=== PATIENT | female | born 1945 | race Caucasian/White ===

== ENCOUNTER 2017-06-18 12:50 | Emergency (ER) | payer MEDICAID, OTHER ==
[~2017-06-18] VITALS: Ht 154.9 cm; Wt 84.8 kg
[~2017-06-18 12:50] MED LIST: ALBU-136; METF500T4 PO; METO50TA9; SIMV10TA6
[2017-06-18 13:03] VITALS: BP 121/78
--- NOTE | 2017-06-18 13:08 | NUR ---
Patient ambulated to bed 08.
--- NOTE | 2017-06-18 13:09 | NUR ---
PT BIB DAUGHTER FOR EVALUATION S/P FALL THIS AM AFTER FEELING DIZZY AND HITTING BACK OF HEAD. HX DM, HTN. SKIN IS PINK/WARM/DRY; AAOX4 WITH EVEN AND STEADY GAIT; LUNGS CLEAR BL; PATIENT STATES PAIN OF 0/10 AT THIS TIME; VSS; PATIENT POSITIONED FOR COMFORT; HOB ELEVATED; BEDRAILS UP X2; BED DOWN. ER MADE AWARE OF PT STATUS. Addendum: 06/18/17 at 1452 by MED1 DENIES LOC
[2017-06-18] MEDS ORDERED: GLIP5TAB4 PO (13:17)
[2017-06-18] MEDS ORDERED: ENAL20TA89 PO (13:17)
[2017-06-18] MEDS ORDERED: MONT10TA35 PO (13:17)
[2017-06-18] MEDS ORDERED: PRAV20TA2 PO (13:17)
[2017-06-18] MEDS ORDERED: VITD400 PO (13:17)
[2017-06-18] MEDS ORDERED: CALC600T7 PO (13:17)
[2017-06-18] MEDS ORDERED: METO25TE PO (13:17)
[2017-06-18] MEDS ORDERED: ASPI81CT95 PO (13:17)
--- NOTE | 2017-06-18 13:41 | NUR ---
DR GONZALEZ EVALUATING AAO IRISH SPEAKING PT WITH FLETCHER AT BEDSIDE
--- NOTE | 2017-06-18 13:41 | NUR ---
Dr. Garduno at bedside to evaluate patient.
[2017-06-18 14:04] LABS: BASOPHILS # (AUTO) 0.1 K/uL (0.00-0.22); BASOPHILS % (AUTO) 1.5 % (0.0-2.0); EOSINOPHILS # (AUTO) 0.2 K/uL (0-0.4); EOSINOPHILS % (AUTO) 2.3 % (0.0-4.0); HEMATOCRIT 43.7 % (36-48); HEMOGLOBIN 14.4 g/dL (12.0-16.0); LYMPHOCYTES % (AUTO) 23.9 % (20.5-51.1); MEAN CORPUSCULAR HEMOGLOBIN 31 pg (27-31); MEAN CORPUSCULAR HGB CONC 33 g/dL (33-37); MEAN CORPUSCULAR VOLUME 96 fL (80-94); MONOCYTES # (AUTO) 0.6 K/uL (0.8-1.0); MONOCYTES % (AUTO) 7.7 % (1.7-9.3); NEUTROPHILS # (AUTO) 5.5 K/uL (1.8-7.7); NEUTROPHILS % (AUTO) 64.6 % (42.2-75.2); PLATELET COUNT (AUTO) 220 K/uL (140-450); RED BLOOD CELL COUNT(AUTO) 4.57 MIL/uL (4.20-5.40); RED CELL DISTRIBUTION WIDTH 13.1 % (11.6-13.7); WHITE BLOOD COUNT (AUTO) 8.4 K/uL (4.8-10.8)
[2017-06-18 14:19] LABS: CARBON DIOXIDE 35.1 mmol/L (21-32); CHLORIDE 102 mmol/L (98-107); CREATININE 0.6 mg/dL (0.6-1.3); GLUCOSE 110 mg/dL (74-106); POTASSIUM 4.1 mmol/L (3.5-5.1); SODIUM SERUM 142 mmol/L (136-145); UREA NITROGEN, BLOOD 9 mg/dL (7-18)
[2017-06-18 14:23] LABS: PROTHROMBIN TIME 10.4 secs (10.8-13.4)
[2017-06-18 14:25] LABS: ALBUMIN 3.8 g/dL (3.4-5.0); ASPARTATE AMINOTRANSFERASE 18 U/L (15-37); TOTAL BILIRUBIN 0.2 mg/dL (0.0-1.0)
[2017-06-18 14:47] VITALS: BP 122/68
== END 2017-06-18 14:47 | disposition home or self-care (01) ==
LOC: MED 12:50
DX: R42 Dizziness and giddiness (principal); E11.9 Type 2 diabetes mellitus without complications; I10 Essential (primary) hypertension
CPT/HCPCS: 36415; 80053; 81002; 84484; 85025; 85610; 85730; 99284

== ENCOUNTER 2017-08-27 13:40 | Inpatient (IN) | payer OTHER ==
[~2017-08-27] VITALS: Ht 154.9 cm; Wt 78.0 kg
[~2017-08-27 13:40] MED LIST changes: +ASPI81CT95 PO; +CALC600T7 PO; +ENAL20TA89 PO; +GLIP5TAB4 PO; +METO25TE PO; -METO50TA9; +MONT10TA35 PO; +PRAV20TA2 PO; -SIMV10TA6; +VITD400 PO
[2017-08-27 13:45] VITALS: BP 156/82
[2017-08-27] MEDS ORDERED: NACL 0.9% 1,000 ML IV SCH ×2 (14:07→15:32)
[2017-08-27 14:09] VITALS: BP 88/65
--- NOTE | 2017-08-27 14:20 | NUR ---
PT TO BED 01
--- NOTE | 2017-08-27 14:35 | NUR ---
72f bib from home with daughter with c/o cough, dizziness, weak, fever, and sob hx--dm, htn rx-- . DENIES N/V/D; SKIN IS PINK/WARM/DRY; AAOX4 WITH EVEN AND STEADY GAIT; LUNGS CLEAR BL; HR EVEN AND REGULAR; PT DENIES ANY FEVER, OR CP AT THIS TIME; PATIENT STATES PAIN OF 0/10 AT THIS TIME; VSS; PATIENT POSITIONED FOR COMFORT; HOB ELEVATED; BEDRAILS UP X2; BED DOWN. ER MD MADE AWARE OF PT STATUS.
[2017-08-27 15:02] LABS: HEMATOCRIT 46.2 % (36-48); HEMOGLOBIN 15.2 g/dL (12.0-16.0); MEAN CORPUSCULAR HEMOGLOBIN 31 pg (27-31); MEAN CORPUSCULAR HGB CONC 33 g/dL (33-37); MEAN CORPUSCULAR VOLUME 94 fL (80-94); PLATELET COUNT (AUTO) 181 K/uL (140-450); RED BLOOD CELL COUNT(AUTO) 4.91 MIL/uL (4.20-5.40); RED CELL DISTRIBUTION WIDTH 13.4 % (11.6-13.7); WHITE BLOOD COUNT (AUTO) 18.6 K/uL (4.8-10.8)
[2017-08-27 15:13] LABS: LYMPHOCYTES % (MANUAL) 4 % (20-46); MONOCYTES % (MANUAL) 4 % (5-12)
[2017-08-27] MEDS ORDERED: NACL 0.9% 500 ML IV SCH (15:32)
[2017-08-27 15:33] LABS: PROTHROMBIN TIME 11.5 secs (10.8-13.4)
[2017-08-27 15:38] LABS: ALBUMIN 3.8 g/dL (3.4-5.0); ANION GAP 11.9 (8-16); ASPARTATE AMINOTRANSFERASE 20 U/L (15-37); CARBON DIOXIDE 31.4 mmol/L (21-32); CHLORIDE 97 mmol/L (98-107); CREATININE 1.5 mg/dL (0.6-1.3); GLUCOSE 214 mg/dL (74-106); POTASSIUM 4.3 mmol/L (3.5-5.1); SODIUM SERUM 136 mmol/L (136-145); TOTAL BILIRUBIN 0.4 mg/dL (0.0-1.0); UREA NITROGEN, BLOOD 18 mg/dL (7-18)
[2017-08-27] MEDS ORDERED: OSELTAMIVIR PHOSPHATE 75 MG CAP PO ONE (16:05)
[2017-08-27] MEDS ORDERED: LEVOFLOXACIN 750 MG/D5W PREMIX 150 ML IV ONE (16:05)
[2017-08-27] MEDS ORDERED: ONDANSETRON 4 MG/2 ML VIAL IVP PRN (16:50)
[2017-08-27] MEDS ORDERED: LORazepam 2 MG/ML VIAL IVP PRN (16:50)
[2017-08-27] MEDS ORDERED: ACETAMINOPHEN 325 MG TAB PO PRN (16:50)
[2017-08-27] MEDS ORDERED: ALBUTEROL 0.083% 2.5 MG/3 ML NEBU IH PRN (16:50)
[2017-08-27] MEDS ORDERED: MORPHINE SULFATE 2 MG/ML SYR IVP PRN (16:50)
--- NOTE | 2017-08-27 19:25 | NUR ---
Pt found resting comfortably at this time. Family at bedside. Comfort needs met. Pt is pending admission.
--- NOTE | 2017-08-27 19:28 | NUR ---
REPORT GIVEN TO ALBER HEAD
[2017-08-27] MEDS ORDERED: METF500T PO (19:46)
[2017-08-27] MEDS ORDERED: PRED20TA5 PO (19:46)
--- NOTE | 2017-08-27 19:49 | NUR ---
Pt transferred to Tele 120-B via gurney via cardiac monitoring.
--- NOTE | 2017-08-27 19:55 | NUR ---
RECEIVED PATIENT FROM ER. PATIENT A&OX4. PATIENT DENIES PAIN. IV SITE PATENT AND INTACT. PATIENT ON 2L O2 NC. PATIENT DENIES SOB. PATIENT ORIENTED TO ROOM. FAMILY AT BEDSIDE. NO SIGNS OR SYMPTOMS OF ACUTE DISTRESS NOTED. CALL LIGHT WITHIN REACH. SAFETY MEASURES ENSURED. WILL CONTINUE TO MONITOR.
[2017-08-27 20:00] VITALS: BP 91/47
[2017-08-27] MEDS: IPRATROPIUM 0.02% 0.5 MG/2.5 ML NEBU IH SCH (20:18)
--- NOTE | 2017-08-27 20:30 | NUR ---
PM MEDS GIVEN WITH EDUCATION. PATIENT VERBALIZED UNDERSTANDING. PATIENT TOLERATED WELL. NO SIGNS OR SYMPTOMS OF ACUTE DISTRESS NOTED. CALL LIGHT WITHIN REACH. WILL CONTINUE TO MONITOR.
[2017-08-27] MEDS: NACL 0.9% 1,000 ML IV SCH (20:37)
[2017-08-27] MEDS: OSELTAMIVIR PHOSPHATE 75 MG CAP PO SCH (20:37)
[2017-08-27] MEDS ORDERED: INSULIN LISPRO SLIDING SCALE 100 UNITS/ML VIAL SUBQ PRN (21:40)
[2017-08-27] MEDS ORDERED: DEXTROSE 50% 50 ML SYR IVP PRN (21:40)
[2017-08-27 23:51] LABS: APPEARANCE,URINE CLEAR (CLEAR); BILIRUBIN,URINE NEGATIVE (NEGATIVE); BLOOD, URINE NEGATIVE (NEGATIVE); COLOR,URINE YELLOW (YELLOW); LEUKOCYTE ESTERASE ,URINE NEGATIVE (NEGATIVE); NITRITE, URINE NEGATIVE (NEGATIVE); PH,URINE 5.5 (5.0-9.0); UGLUCOSE NEGATIVE (NEGATIVE)
[2017-08-28] VITALS: BP 107/63
--- NOTE | 2017-08-28 02:18 | NUR ---
PATIENT UP TO USE THE BATHROOM. PATIENT TOLERATED WELL. SAFETY MEASURES ENSURED. CALL LIGHT WITHIN REACH. WILL CONTINUE TO MONITOR.
[2017-08-28] MEDS: NACL 0.9% 1,000 ML IV SCH ×3 (02:49→22:49)
[2017-08-28 04:00] VITALS: BP 119/75
--- NOTE | 2017-08-28 07:25 | NUR ---
ENDORSED PLAN OF CARE TO AM RN. PATIENT IN STABLE CONDITION.
[2017-08-28] MEDS ORDERED: BLOOD GLUCOSE MONITORING 1 DEV DEV FS SCH (07:30)
[2017-08-28 07:37] LABS: ALBUMIN 2.7 g/dL (3.4-5.0); ANION GAP 9.9 (8-16); ASPARTATE AMINOTRANSFERASE 22 U/L (15-37); CHLORIDE 104 mmol/L (98-107); CREATININE 0.7 mg/dL (0.6-1.3); GLUCOSE 117 mg/dL (74-106); MAGNESIUM 1.6 mg/dL (1.8-2.4); PHOSPHORUS 2.8 mg/dL (2.5-4.9); POTASSIUM 3.9 mmol/L (3.5-5.1); SODIUM SERUM 141 mmol/L (136-145); TOTAL BILIRUBIN 0.3 mg/dL (0.0-1.0); UREA NITROGEN, BLOOD 11 mg/dL (7-18)
[2017-08-28 07:50] VITALS: BP 107/55
--- NOTE | 2017-08-28 08:00 | NUR ---
PT RECEIVED FROM [facility] NURSE, PT IS SLEEPING CALMLY IN BED. NO PAIN OR RESP DISTRESS NOTED. PT IS RESPONSIVE TO VERBAL COMMAND VIA NIGERIEN ONLY. V/S STABLE.
--- NOTE | 2017-08-28 08:45 | NUR ---
DR CORLEY AT THE NURSING STATION MAKING ROUNDS. HE IS INFORMED THAT PT IS A DIABETIC BUT DOES NOT HAVE ACCU CHECK ORDERS. ALSO PT ON REGULAR DIET AND HOME MED ARE NOT ORDERED.
--- NOTE | 2017-08-28 08:59 | NUR ---
PT HAS BEEN SCREENED AND CATEGORIZED MODERATE NUTIRITON RISK. PT WILL BE SEEN WITHIN 3-5 DAYS OF ADMISSION. 08/29/17-08/31/[address]
[2017-08-28] MEDS ORDERED: ATORVASTATIN 20 MG TAB PO SCH (09:00)
[2017-08-28] MEDS ORDERED: ENOXAPARIN 30 MG/0.3 ML SYR SUBQ SCH (09:00)
[2017-08-28] MEDS: OSELTAMIVIR PHOSPHATE 75 MG CAP PO SCH ×2 (10:10→21:18)
[2017-08-28 12:00] VITALS: BP 102/56
[2017-08-28] MEDS ORDERED: INSULIN LISPRO SLIDING SCALE 100 UNITS/ML VIAL SUBQ PRN (13:00)
[2017-08-28] MEDS: IPRATROPIUM 0.02% 0.5 MG/2.5 ML NEBU IH SCH ×2 (13:09→19:47)
[2017-08-28] MEDS ORDERED: MAG SULF 2000 MG/WATER PREMIX 50 ML IV SCH (13:30)
--- NOTE | 2017-08-28 14:02 | NUR ---
DR CORLEY CALLED AND ORDERS OBTAINED FOR MAGNESIUM OF 1.6 AND ALSO ACCU CHECK ORDERS.
--- NOTE | 2017-08-28 15:19 | NUR ---
CM NOTE INITIAL REVIEW FAXED TO [facility] [phone] ELZA # [phone]
[2017-08-28 16:00] VITALS: BP 106/76
[2017-08-28] MEDS: BLOOD GLUCOSE MONITORING 1 DEV DEV FS SCH ×2 (16:30→21:17)
--- NOTE | 2017-08-28 19:00 | NUR ---
PT IN BED AWAKE ALERT AND CALM. NO ACUTE DISTRESS NOTED. PT' DAUGHTER IS PRESENT AT THE BED SITE. PT IS NORMAL SINUS RHYTHM ON THE MONITOR. PT REMAINS ON DROPLET ISOLATION. V/S STABLE.
--- NOTE | 2017-08-28 19:15 | NUR ---
RECEIVED PT FROM DAY SHIFT NURSE PT IS AAOX4 AMBULATORY B[place]UNDIAN SPEAKER IV ON LEFT AC INFUSING WELL, ON TELEMETRY SR RELATIVES AT BED SIDE INITIAL ASSESSMENT DONE
[2017-08-28 20:00] VITALS: BP 102/64
--- NOTE | 2017-08-28 21:30 | NUR ---
BLOOD SUGAR 212 COVERAGE WITH 4 UNITS SUB Q HUMALOG PROTOCOL
[2017-08-29] VITALS: BP 120/75
--- NOTE | 2017-08-29 01:00 | NUR ---
PT SLEEPING WELL NOT DISTRESS NOTED ON TELMETRY SR
[2017-08-29] MEDS: IPRATROPIUM 0.02% 0.5 MG/2.5 ML NEBU IH SCH ×2 (01:38→07:00)
--- NOTE | 2017-08-29 01:48 | NUR ---
POST HHN THERAPY SPONTANEOUS PRODUCTIVE COUGH OF SMALL THICK YELLOW
[2017-08-29 04:00] VITALS: BP 108/70
--- NOTE | 2017-08-29 04:06 | NUR ---
SPONGE BATH GIVEN LINEN CHANGED ON TELEMETRY SR IV ON LEFT AC INFUSING WELL, PT VOIDING WELL
[2017-08-29] MEDS: BLOOD GLUCOSE MONITORING 1 DEV DEV FS SCH (05:47)
--- NOTE | 2017-08-29 06:37 | NUR ---
BLOOD SUGAR TEST 140 NOT COVERAGE PT RESTING ON BED NOT DISTRESS NOTED ON TELEMETRY SR
[2017-08-29] MEDS: NACL 0.9% 1,000 ML IV SCH (07:25)
--- NOTE | 2017-08-29 07:30 | NUR ---
RECEIVED PT ON BED AAOX4. NO SOB NOTED. NO C/O AT THIS TIME. IV TO LT AC PATENT AND INTACT. ABDOMEN SOFT, BOWEL SOUNDS PRESENT. NO EDEMA NOTED. DROPLET INSTRUCTED PT TO CALL FOR ASSISTANCE, CALL LIGHT WITHIN REACH. PT VERBALIZED UNDERSTANDING.
[2017-08-29 08:00] VITALS: BP 126/78
--- NOTE | 2017-08-29 08:00 | NUR ---
RECEIVED PT ON BED AAOX4. NO SOB NOTED. NO C/O AT THIS TIME. IV TO LT AC PATENT AND INTACT. ABDOMEN SOFT, BOWEL SOUNDS PRESENT. NO EDEMA NOTED. DROPLET INSTRUCTED PT TO CALL FOR ASSISTANCE, CALL LIGHT WITHIN REACH. PT VERBALIZED UNDERSTANDING. Addendum: 08/29/17 at 1132 by Randi Barnes RN PLS DISREGARD ABOVE NOTES, DUPLICATE.
--- NOTE | 2017-08-29 08:00 | NUR ---
PT REFUSED HHN TX. SHE WANTS TO EAT. WILL CONTINUE TO MONITOR
[2017-08-29 08:01] LABS: BASOPHILS # (AUTO) 0.1 K/uL (0.00-0.22); BASOPHILS % (AUTO) 1.8 % (0.0-2.0); EOSINOPHILS # (AUTO) 0.1 K/uL (0-0.4); EOSINOPHILS % (AUTO) 2.2 % (0.0-4.0); HEMATOCRIT 36.7 % (36-48); HEMOGLOBIN 12.5 g/dL (12.0-16.0); LYMPHOCYTES # (AUTO) 0.8 K/uL (2.5-16.5); LYMPHOCYTES % (AUTO) 18.4 % (20.5-51.1); MEAN CORPUSCULAR HEMOGLOBIN 32 pg (27-31); MEAN CORPUSCULAR HGB CONC 34 g/dL (33-37); MEAN CORPUSCULAR VOLUME 94 fL (80-94); MONOCYTES # (AUTO) 0.4 K/uL (0.8-1.0); MONOCYTES % (AUTO) 8.5 % (1.7-9.3); NEUTROPHILS # (AUTO) 2.9 K/uL (1.8-7.7); NEUTROPHILS % (AUTO) 69.1 % (42.2-75.2); PLATELET COUNT (AUTO) 125 K/uL (140-450); RED BLOOD CELL COUNT(AUTO) 3.89 MIL/uL (4.20-5.40); RED CELL DISTRIBUTION WIDTH 13.1 % (11.6-13.7); WHITE BLOOD COUNT (AUTO) 4.3 K/uL (4.8-10.8)
[2017-08-29] MEDS ORDERED: LEVOFLOXACIN 750 MG/D5W PREMIX 150 ML IV SCH (09:00)
--- NOTE | 2017-08-29 09:00 | NUR ---
PT SEEN BY DR. CORLEY WITH ORDER.
[2017-08-29] MEDS ORDERED: LEVO750T2 PO (09:07)
[2017-08-29] MEDS ORDERED: ALBU0.0912 INH (09:09)
[2017-08-29] MEDS ORDERED: PUL.25N INH (09:12)
--- NOTE | 2017-08-29 09:30 | NUR ---
PT AMBULATING IN THE HALLWAY, NO SOB NOTED. ACTIVITY TOLERATED WELL.
--- NOTE | 2017-08-29 10:30 | NUR ---
DISCHARGE INSTRUCTIONS AND PRESCRIPTIONS GIVEN TO PT AND GRAND DAUGHTER, BOTH VERBALIZED FULL UNDERSTANDING OF THE INSTRUCTIONS GIVEN AND THE NEED TO FOLLOW UP WITH OWN PCP WITHIN 7 DAYS. ARM BANDS AND IV REMOVED, CANNULA TIP INTACT.
--- NOTE | 2017-08-29 10:45 | NUR ---
PT WHEELED TO THE PARKING LOT IN STABLE CONDITION. NO SOB NOTED. NO COMPLAINTS MADE. PT IS D/C HOME WITH FAMILY.
== END 2017-08-29 10:45 | disposition home or self-care (01) | DRG 720 ==
LOC: MED 13:40 → MTU 16:57
PROVIDERS: ADMIT Hospitalist; ATTEND Hospitalist
DX: A41.9 Sepsis, unspecified organism (principal); J96.00 Acute respiratory failure, unspecified whether with hypoxia or hypercapnia; N17.9 Acute kidney failure, unspecified; J18.9 Pneumonia, unspecified organism; E11.9 Type 2 diabetes mellitus without complications; I10 Essential (primary) hypertension; J45.909 Unspecified asthma, uncomplicated; Z87.891 Personal history of nicotine dependence; Z90.710 Acquired absence of both cervix and uterus; Z90.722 Acquired absence of ovaries, bilateral; Z88.2 Allergy status to sulfonamides
CPT/HCPCS: 36415; 71045; 80053; 81003; 82550; 82553; 82948; 83605; 83735; 83874; 83880; 84100; 84484; 85025; 85610; 85730; 87040; 87081; 87086; 87804; 93005; 94640; 96361; 96365; 99285; J1650; J1815; J1956; J3475; J7030; J7644; Q0092

== ENCOUNTER 2018-10-28 18:58 | Inpatient (IN) | payer OTHER, MEDICARE ==
[~2018-10-28] VITALS: Ht 154.9 cm; Wt 83.9 kg
[~2018-10-28 18:58] MED LIST changes: -ALBU-136; +ALBU0.0912 INH; +LEVO750T2 PO; +METF500T PO; -METF500T4 PO; +METO-744 PO; -METO25TE PO; +PUL.25N INH
[2018-10-28 19:11] VITALS: BP 137/73
--- NOTE | 2018-10-28 19:11 | NUR ---
TO BED # 03 AMBULATORY.
--- NOTE | 2018-10-28 19:25 | NUR ---
73 YO FEMALE COMES TO ED FOR C/O CHEST PALPITATIONS; PT DENIES CP/SOB. PT STATES HEART RATE SPEEDS UP AND DOWN FOR THE PAST COUPLE OF DAYS. PT AAOX4 FAROESE SPEAKING. S1 S2 HEARD, NSR ON MONITOR. TRACE EDEMA NOTED. LUNGS CLEAR EVEN UNLABORED. ABD SOFT NON DISTENDED. SKIN WARM DRY INTACT. PERIPHERAL IV 20G TO R AC STARTED. LABS DRAWN. ER MD @ BEDSIDE. WILL CONTINUE TO OBSERVE. HX: ASTHMA, HTN, DM RX: METFORMIN GLIPIZIDE LOSARTAN METOPROLOL PRAVASTATIN ASPIRIN VIT D3 VIT CALCIUM VIT B12 DICLOFENAC TOP GEL FLOVENT PROVENTIL ALBUTEROL
[2018-10-28] MEDS ORDERED: ASPIRIN 325 MG TAB PO ONE (19:35)
[2018-10-28 20:00] LABS: BASOPHILS % (AUTO) 0.4 % (0.0-2.0); EOSINOPHILS # (AUTO) 0.2 K/uL (0-0.4); EOSINOPHILS % (AUTO) 3.5 % (0.0-4.0); HEMATOCRIT 40.8 % (36-48); HEMOGLOBIN 13.7 g/dL (12.0-16.0); LYMPHOCYTES # (AUTO) 1.6 K/uL (2.5-16.5); LYMPHOCYTES % (AUTO) 23.9 % (20.5-51.1); MEAN CORPUSCULAR HEMOGLOBIN 32 pg (27-31); MEAN CORPUSCULAR HGB CONC 34 g/dL (33-37); MEAN CORPUSCULAR VOLUME 94.6 fL (80-94); MONOCYTES # (AUTO) 0.5 K/uL (0.8-1.0); MONOCYTES % (AUTO) 7.3 % (1.7-9.3); NEUTROPHILS # (AUTO) 4.3 K/uL (1.8-7.7); NEUTROPHILS % (AUTO) 64.9 % (42.2-75.2); PLATELET COUNT (AUTO) 287 K/uL (140-450); RED BLOOD CELL COUNT(AUTO) 4.32 MIL/uL (4.20-5.40); RED CELL DISTRIBUTION WIDTH 13.9 % (11.6-13.7); WHITE BLOOD COUNT (AUTO) 6.6 K/uL (4.8-10.8)
--- NOTE | 2018-10-28 20:00 | NUR ---
12 LEAD EKG @ BEDSIDE
[2018-10-28 20:23] LABS: ANION GAP 11.4 (8-16); CARBON DIOXIDE 32.3 mmol/L (21-32); CHLORIDE 99 mmol/L (98-107); CREATININE 0.6 mg/dL (0.6-1.3); GLUCOSE 182 mg/dL (74-106); POTASSIUM 3.7 mmol/L (3.5-5.1); SODIUM SERUM 139 mmol/L (136-145); UREA NITROGEN, BLOOD 16 mg/dL (7-18)
[2018-10-28 20:24] LABS: TOTAL BILIRUBIN 0.3 mg/dL (0.0-1.0)
[2018-10-28 20:25] LABS: ALBUMIN 3.7 g/dL (3.4-5.0); ASPARTATE AMINOTRANSFERASE 16 U/L (15-37); LIPASE 175 U/L (73-393)
[2018-10-28 21:05] LABS: CREATINE KINASE MB 1.4 ng/mL (0-3.6)
--- NOTE | 2018-10-28 22:15 | NUR ---
Patient will be admitted to care of DR. HOPE. Admited to [facility]. Will go to [id number]. Belongings list completed. Report to EDSON CAMPO
[2018-10-28 22:17] VITALS: BP 139/76
--- NOTE | 2018-10-28 22:17 | NUR ---
PT ARRIVED AT UNIT VIA GURNEY, PT AMBULATED TO BED, NO DISTRESS NOTED, IV TO R AC 20G PATENT, INTACT, SL, DATED AND INITIALED, PT ON 2LPM O2 VIA NV, REPORT RECEIVED FROM ER NURSE CHANCE RN, PT STATED HAVING NO PAIN AT THIS MOMENT, MRSA SWAB TAKEN, ORIENT PT TO ROOM, BED, CALL LIGHT, V/S TAKEN, WNL, INITIAL ASSESSMENT DONE, ALL SAFETY PRECAUTION MET, CALL LIGHT WITHIN REACH, WILL CONTINUE TO MONITOR.
--- NOTE | 2018-10-28 22:37 | NUR ---
PT HAS NO ORDER FOR MEDICATION AT THIS MOMENT, PT INSISTED ON TAKING HOME MEDICATION BROUGHT BY DAUGHTER, EXPLAINED TO PT AND DAUGHTER THAT USUALLY WE ONLY GIVE MEDICATION THAT IS PRESCRIBED BY , PT STILL INSISTED OF TAKING HER NIGHT TIME MEDICATION, GLIPIZIDE, METFORMIN AND PRAVASTATIN. PT RESTING, DAUGHTER AT BEDSIDE, NO DISTRESS NOTED, WILL CONTINUE TO MONITOR.
[2018-10-29] VITALS: BP 140/83
--- NOTE | 2018-10-29 00:10 | NUR ---
CHECKED ON PT, PT SLEEPING, NO DISTRESS NOTED, V/S TAKEN, WITHIN NORMAL LIMITS, CALL LIGHT WITHIN REACH, WILL CONTINUE TO MONITOR.
[2018-10-29] MEDS ORDERED: INSULIN LISPRO SLIDING SCALE 100 UNITS/ML VIAL SUBQ PRN (00:15)
[2018-10-29] MEDS ORDERED: ACETAMINOPHEN 325 MG TAB PO PRN (00:15)
[2018-10-29] MEDS ORDERED: DEXTROSE 50% 50 ML SYR IVP PRN (00:15)
--- NOTE | 2018-10-29 00:21 | NUR ---
TALKED TO DR. BLANCO REGARDING ORDERS, STATED TO CONTINUE WITH HOME MEDICATIONS, TO ORDER ACCUCHECKS ACHS, LOVENOX 40MEQ SUBQ DAILY, TYLENOL 650MG PRN, CARDIAC DIET, AND MORNING LABS CBC, BMP AND LIPID PANEL. WILL PUT IN ORDERS AND CONTINUE WITH ORDERS.
[2018-10-29] MEDS ORDERED: PNEUMOCOCCAL VACCINE 23 MCG/0.5 ML VIAL IMVAC PRN (00:25)
[2018-10-29] MEDS ORDERED: ALBUTEROL 0.083% 2.5 MG/3 ML NEBU INH PRN (00:50)
--- NOTE | 2018-10-29 03:54 | NUR ---
PT SLEEPING, NO DISTRESS NOTED, V/S TAKEN, WNL, CALL LIGHT WITHIN REACH, WILL CONTINUE TO MONITOR.
[2018-10-29 04:00] VITALS: BP 141/73
[2018-10-29 04:00] LABS: BASOPHILS % (AUTO) 0.1 % (0.0-2.0); EOSINOPHILS # (AUTO) 0.3 K/uL (0-0.4); EOSINOPHILS % (AUTO) 4.9 % (0.0-4.0); HEMATOCRIT 38.4 % (36-48); HEMOGLOBIN 12.7 g/dL (12.0-16.0); LYMPHOCYTES # (AUTO) 2.3 K/uL (2.5-16.5); LYMPHOCYTES % (AUTO) 34.9 % (20.5-51.1); MEAN CORPUSCULAR HEMOGLOBIN 31 pg (27-31); MEAN CORPUSCULAR HGB CONC 33 g/dL (33-37); MEAN CORPUSCULAR VOLUME 95.1 fL (80-94); MONOCYTES # (AUTO) 0.6 K/uL (0.8-1.0); MONOCYTES % (AUTO) 9.1 % (1.7-9.3); NEUTROPHILS # (AUTO) 3.4 K/uL (1.8-7.7); PLATELET COUNT (AUTO) 252 K/uL (140-450); RED BLOOD CELL COUNT(AUTO) 4.04 MIL/uL (4.20-5.40); RED CELL DISTRIBUTION WIDTH 13.9 % (11.6-13.7); WHITE BLOOD COUNT (AUTO) 6.6 K/uL (4.8-10.8)
[2018-10-29 04:24] LABS: CREATINE KINASE MB 0.8 ng/mL (0-3.6)
[2018-10-29] MEDS: BLOOD GLUCOSE MONITORING 1 DEV DEV FS SCH ×2 (06:08→11:37)
[2018-10-29 06:32] LABS: ANION GAP 8.9 (8-16); CARBON DIOXIDE 31.9 mmol/L (21-32); CHLORIDE 104 mmol/L (98-107); CREATININE 0.5 mg/dL (0.6-1.3); GLUCOSE 88 mg/dL (74-106); POTASSIUM 3.8 mmol/L (3.5-5.1); SODIUM SERUM 141 mmol/L (136-145); UREA NITROGEN, BLOOD 12 mg/dL (7-18)
[2018-10-29] MEDS ORDERED: BUDESONIDE 0.25 MG/2 ML NEBU INH SCH ×2 (07:13→19:30)
--- NOTE | 2018-10-29 07:30 | NUR ---
ENDORSED PT TO DAY SHIFT NURSE CINDY RN, PT SLEEPING, NO DISTRESS NOTED, CALL LIGHT WITHIN REACH.
--- NOTE | 2018-10-29 07:30 | NUR ---
RECEIVED BEDSIDE REPORT FROM [facility] SET[facility] NURSE. PATIENT IS AOX4. ABLE TO FOLLOW COMMANDS AND MAKE NEEDS KNOWN. RESPIRATION EVEN UNLABORED ON ROOM AIR. NO SIGNS OF DISTRESS NOTED. SKIN IS WARM AND DRY. IV PATENT AND INTACT, SALINE LOCK. PATIENT IS ABLE TO AMBULATE WITH STANDBY ASSISTANCE. PLAN OF CARE WAS DISCUSSED AND PT VERBALIZED UNDERSTANDING. ALL SAFETY MEASURES ARE IN PLACE. INSTRUCTED PT TO USE THE CALL LIGHT FOR ANY ASSISTANCE AND PT AWARE. CALL LIGHT WITHIN REACH. TWO SIDE RAILS ARE UP. BED IS AT LOW POSITION.
[2018-10-29 08:00] VITALS: BP 156/86
[2018-10-29] MEDS ORDERED: metFORMIN 500 MG TAB PO SCH (08:00)
[2018-10-29] MEDS ORDERED: glipiZIDE 5 MG TAB PO SCH (08:00)
--- NOTE | 2018-10-29 08:11 | NUR ---
PATIENT HAS BEEN SCREENED AND CATEGORIZED MODERATE NUTRITION RISK. PATIENT WILL BE SEEN WITHIN 3-5 DAYS OF ADMISSION. 10/31/18CESAR [address]
[2018-10-29] MEDS ORDERED: GLIPIZIDE 5 MG PO SCH (09:00)
[2018-10-29] MEDS ORDERED: METOPROLOL SUCCINATE 50 MG TABER PO SCH (09:00)
[2018-10-29] MEDS ORDERED: CALCIUM CARBONATE 600 MG PO SCH (09:00)
[2018-10-29] MEDS ORDERED: ENOXAPARIN 40 MG/0.4 ML SYR SUBQ SCH (09:00)
[2018-10-29] MEDS ORDERED: CALCIUM CARB 600 MG TAB PO SCH (09:00)
[2018-10-29] MEDS ORDERED: ENALAPRIL 10 MG TAB PO SCH (09:00)
[2018-10-29] MEDS ORDERED: ENALAPRIL MALEATE 20 MG PO SCH (09:00)
[2018-10-29] MEDS ORDERED: ASPIRIN 81 MG TAB.CHEW PO SCH (09:00)
[2018-10-29] MEDS ORDERED: NON-FORMULARY ITEM (Aspirin 81 MG) PO SCH (09:00)
[2018-10-29] MEDS ORDERED: NON-FORMULARY ITEM (Metoprolol Succinate (Metoprolol Succinate Er) 25 MG) PO SCH (09:00)
--- NOTE | 2018-10-29 09:20 | NUR ---
PT IS RESTING ON BED. DENIES PAIN AND SOB. NO SIGNS OF DISTRESS NOTED.
[2018-10-29 09:42] LABS: CHOL/HDL RATIO 2.4 (1-4.5)
[2018-10-29] MEDS ORDERED: METO-747 PO (10:23)
--- NOTE | 2018-10-29 10:47 | NUR ---
DAUGHTER ELADIO AND FRIEND WILMA ARE AT BEDSIDE. PT IS TALKING TO VISITORS. DENIES PAIN AND SOB. NO SIGNS OF DISTRESS NOTED.
[2018-10-29] MEDS ORDERED: PNEUMOCOCCAL VACCINE 23 MCG/0.5 ML VIAL IMVAC SCH (11:20)
[2018-10-29 12:00] VITALS: BP 135/99
--- NOTE | 2018-10-29 12:40 | NUR ---
PT IS CHANGING INTO HER OWN CLOTHES WITH THE ASSIST FROM HER DAUGHTER. NO SIGNS OF DISTRESS NOTED.
--- NOTE | 2018-10-29 12:55 | NUR ---
PNA VACCINE EDUCATION PROVIDED TO PATIENT AND DAUGHTER ELADIO. ANSWERED BOTH PATIENT AND ELADIO'S QUESTIONS. BOTH VERBALIZED UNDERSTANDING.
--- NOTE | 2018-10-29 13:00 | NUR ---
DISCHARGE INSTRUCTION PROVIDED TO PATIENT AND DAUGHTER ELADIO. EDUCATED PATIENT AND DAUGHTER ON FOLLOW WITH PCP WITHIN 1-2 WEEKS AFTER DISCHARGE, DISEASE MANAGEMENT, SIGNS AND SYMPTOMS, MEDICATIONS REGIMEN, MEDICATION SIDE EFFECTS, DIET REGIMEN, AND GO TO THE NEAREST ER IF EXPERIENCING PAIN, SWELLING, FEVER, GENERALIZED WEAKNESS AND OR WORSEN CONDITION. ANSWERED ALL PATIENT'S AND DAUGHTER'S QUESTIONS. BOTH VERBALIZED UNDERSTANDING. PROVIDED THE MEDICATION PRESCRIPTION TO PATIENT. D/C IV AND IV CANNULA INTACT. MINIMAL BLEEDING AT IV SITE. REMOVED ALL ARMBANDS. PATIENT TOOK ALL HER BELONGINGS. ESCORTED PATIENT TO THE LOBBY AND PATIENT IS DISCHARGE IN A STABLE CONDITION. PATIENT DISCHARGED AT THIS TIME.
--- NOTE | 2018-10-29 15:03 | NUR ---
CM NOTE FOLLOW UP APPOINTMENT SCHEDULED FOR PT TO SEE PCP DR. JUNAID ABREU # [phone] ON NOVEMBER 03, 2018 AT 1030 AT [address] [id number]. APPOINTMENT SLIP GIVEN TO PT WITH VERBAL UNDERSTANDING.
[2018-10-29] MEDS ORDERED: PRAVASTATIN SODIUM PO SCH (21:00)
[2018-10-29] MEDS ORDERED: SIMVASTATIN 10 MG TAB PO SCH (21:00)
--- NOTE | 2018-11-02 14:09 | NUR ---
DEACON SOTO CALLED PATIENTS DAUGHTER ELADIO BLACKWOOD WHO SPEAKS [place] TO CONFIRM WITH HER PATIENT'S DR ALBERTO TOMORROW 11/03 AT 10:[address] FUENTES ON [address] IN [place]. PER DEACON HENDRICKS STATED THAT SHE WILL BE TAKING HER MOTHER TO THE DR ALBERTO TOMORROW.
== END 2018-10-29 13:15 | disposition home or self-care (01) | DRG 207 ==
LOC: MED 18:58 → MTU 22:07
PROVIDERS: ADMIT Hospitalist; ATTEND Hospitalist
PROC: 3E0234Z Introduction of Serum, Toxoid and Vaccine into Muscle, Percutaneous Approach (ICD-10-PCS; principal; 2018-10-29)
DX: R00.2 Palpitations (principal); E11.9 Type 2 diabetes mellitus without complications; J45.909 Unspecified asthma, uncomplicated; E78.5 Hyperlipidemia, unspecified; I10 Essential (primary) hypertension; E55.9 Vitamin D deficiency, unspecified; Z90.710 Acquired absence of both cervix and uterus; Z88.2 Allergy status to sulfonamides; Z23 Encounter for immunization
CPT/HCPCS: 36415; 71045; 80048; 80053; 82550; 82553; 82948; 83690; 84484; 85025; 85379; 87081; 90732; 93005; 99285; J1650; J1815